=== PATIENT | male | born 1955 | race Caucasian/White ===

== ENCOUNTER 2017-10-05 13:44 | Outpatient (REF) | payer MEDICAID, SELFPAY ==
[2017-10-05 19:14] LABS: COMMENT (LAB VIEW ONLY) 44.11 mg/dL; Microalb ug/mg Crea 3.2 ug/mg Cr
== END 2017-10-05 13:45 ==
LOC: NCHCN 13:44
PROVIDERS: PCP Internal Medicine; Visit Provider Physician Assistant Medical
DX: E11.9 Type 2 diabetes mellitus without complications (principal)
CPT/HCPCS: 82043; 82570

== ENCOUNTER 2018-02-19 15:04 | Outpatient (REF) | payer MEDICAID, SELFPAY ==
[2018-02-19 19:17] LABS: Anion Gap 6.6 mmol/L (3-11); BUN 21 mg/dL (7-18); CO2 32.4 mmol/L (21.0-32.0); CREATININE 1.22 mg/dL (0.70-1.30); Calcium 9.9 mg/dL (8.5-10.1); Chloride 97 mmol/L (98-107); Glucose 119 mg/dL (70-100); Potassium 5.2 mmol/L (3.5-5.1); Sodium 136 mmol/L (136-145)
== END 2018-02-19 15:24 ==
LOC: NCHCN 15:04
PROVIDERS: PCP Internal Medicine; Visit Provider Physician Assistant Medical
DX: I10 Essential (primary) hypertension (principal); E11.9 Type 2 diabetes mellitus without complications
CPT/HCPCS: 80048

== ENCOUNTER 2019-08-19 18:40 | Outpatient (REF) | payer MEDICAID, SELFPAY ==
[2019-08-19 19:47] LABS: Abs Immature Grans 0.01 k/cumm (0.0-0.09); Absolute Basophil Count 0.03 k/cumm (0.0-0.2); Absolute Eosinophil Count 0.23 k/cumm (0.0-0.7); Absolute Lymphocyte Count 1.46 k/cumm (1.2-3.4); Absolute Monocyte Count 0.58 k/cumm (0.11-0.7); Absolute Neutrophil Count 4.81 k/cumm (1.2-6.7); Basophils % 0.4; Eosinophils % 3.2; HGB 14.4 g/dL (13.5-17.5); Immature Grans % 0.1 %; Lymphocytes % 20.5; Mean Corp. HGB Concentration 32.7 g/dL (32.0-36.0); Mean Corpuscular Hemoglobin 29.3 pg (27.0-33.0); Mean Corpuscular Volume 89.4 fL (80-95); Mean Platelet Volume 10.1 fL (8.0-11.0); Monocytes % 8.1; Neutrophils % 67.7; Platelet Count 301 x1000/uL (130-400); RBC 4.92 m/cumm (4.50-6.00); RBC Distribution Width 13.7 % (11.8-14.1); White Blood Cell Count 7.12 k/cumm (4.4-10.8)
[2019-08-19 20:20] LABS: Hemoglobin A1C 6.9 % (3.8-5.6)
[2019-08-19 20:21] LABS: ALT 22 U/L (16-63); AST 14 U/L (15-37); Albumin 4.1 g/dL (3.4-5.0); Alkaline Phosphatase 58 U/L (46-116); Anion Gap 5.6 mmol/L (3-11); BUN 22 mg/dL (7-18); Bilirubin, Total 0.3 mg/dL (0.2-1.0); CO2 32.4 mmol/L (21.0-32.0); CREATININE 1.27 mg/dL (0.70-1.30); Calcium 9.5 mg/dL (8.5-10.1); Calculated LDL 85 mg/dL (<100); Chloride 98 mmol/L (98-107); Cholesterol 148 mg/dL (<200); Estimated GFR 57.28 (mL/min/1.73m2); Glucose 152 mg/dL (74-106); HDL Cholesterol 41 mg/dL (40-60); Potassium 5.3 mmol/L (3.5-5.1); Sodium 136 mmol/L (136-145); Total Protein 7.6 g/dL (6.4-8.2); Triglyceride 114 mg/dL (<150)
== END 2019-08-19 19:00 ==
LOC: NCHCN 18:40
PROVIDERS: PCP Internal Medicine; Visit Provider Physician Assistant
DX: E11.9 Type 2 diabetes mellitus without complications (principal); I10 Essential (primary) hypertension; E78.5 Hyperlipidemia, unspecified; I25.10 Atherosclerotic heart disease of native coronary artery without angina pectoris; J44.9 Chronic obstructive pulmonary disease, unspecified
CPT/HCPCS: 80053; 80061; 83036; 85025

== ENCOUNTER 2019-08-28 13:31 | Outpatient (REF) | payer MEDICAID, SELFPAY ==
[2019-08-28 19:51] LABS: Microalb ug/mg Crea 5.3 ug/mg Cr
== END 2019-08-28 13:51 ==
LOC: NCHCN 13:31
PROVIDERS: PCP Internal Medicine; Visit Provider Physician Assistant
DX: E11.9 Type 2 diabetes mellitus without complications (principal)
CPT/HCPCS: 82043; 82570

== ENCOUNTER 2020-07-17 14:16 | Outpatient (REF) | payer MEDICAID, SELFPAY ==
[2020-07-17 18:47] LABS: Anion Gap 8.2 mmol/L (3-11); BUN 23 mg/dL (7-18); CO2 29.8 mmol/L (21.0-32.0); CREATININE 1.2 mg/dL (0.70-1.30); Calcium 9.6 mg/dL (8.5-10.1); Chloride 98 mmol/L (98-107); Glucose 115 mg/dL (74-106); Sodium 136 mmol/L (136-145)
== END 2020-07-17 14:17 | disposition home or self-care (01) ==
LOC: NCHCN 14:16
PROVIDERS: PCP Internal Medicine; Visit Provider Physician Assistant
DX: E11.9 Type 2 diabetes mellitus without complications (principal); I10 Essential (primary) hypertension
CPT/HCPCS: 80048

== ENCOUNTER 2020-10-16 16:23 | Outpatient (REF) | payer MEDICAID, SELFPAY ==
[2020-10-16 19:26] LABS: COMMENT (LAB VIEW ONLY) 43.35 mg/dL; Microalb ug/mg Crea 4.4 ug/mg Cr
== END 2020-10-16 16:24 | disposition home or self-care (01) ==
LOC: NCHCN 16:23
PROVIDERS: PCP Internal Medicine; Visit Provider Physician Assistant
DX: E11.9 Type 2 diabetes mellitus without complications (principal)
CPT/HCPCS: 82043; 82570

== ENCOUNTER 2021-07-15 14:27 | Outpatient (REF) | payer MEDICARE, MEDICAID, SELFPAY ==
[2021-07-15 18:58] LABS: Anion Gap 7.3 mmol/L (3-11); BUN 22 mg/dL (7-18); CO2 31.7 mmol/L (21.0-32.0); CREATININE 1.2 mg/dL (0.70-1.30); Calcium 9.4 mg/dL (8.5-10.1); Chloride 97 mmol/L (98-107); Glucose 138 mg/dL (74-106); Potassium 4.7 mmol/L (3.5-5.1); Sodium 136 mmol/L (136-145)
== END 2021-07-15 14:28 | disposition home or self-care (01) ==
LOC: LBN 14:27
PROVIDERS: PCP Internal Medicine; Visit Provider Physician Assistant
DX: I10 Essential (primary) hypertension (principal)
CPT/HCPCS: 80048

== ENCOUNTER 2022-07-12 18:08 | Outpatient (REF) | payer MEDICARE, MEDICAID, SELFPAY ==
[2022-07-12 19:53] LABS: ALT 24 U/L (16-63); AST 18 U/L (15-37); Albumin 3.7 g/dL (3.4-5.0); Alkaline Phosphatase 104 U/L (46-116); Anion Gap 6.6 mmol/L (3-11); BUN 17 mg/dL (7-18); Bilirubin, Total 0.4 mg/dL (0.2-1.0); CO2 31.4 mmol/L (21.0-32.0); CREATININE 1.1 mg/dL (0.70-1.30); Calcium 8.8 mg/dL (8.5-10.1); Chloride 99 mmol/L (98-107); Estimated GFR 74.04 (mL/min/1.73m2); Glucose 137 mg/dL (74-106); LDL CHOLESTEROL 58 mg/dL (<100); Potassium 4.7 mmol/L (3.5-5.1); Sodium 137 mmol/L (136-145); Total Protein 7.9 g/dL (6.4-8.2)
[2022-07-14 09:14] LABS: PSA, Screening 0.5 ng/mL (<=4.5)
== END 2022-07-12 18:09 | disposition home or self-care (01) ==
LOC: NCHCN 18:08
PROVIDERS: PCP Internal Medicine; Visit Provider Physician Assistant
DX: I10 Essential (primary) hypertension (principal); E11.9 Type 2 diabetes mellitus without complications; R35.1 Nocturia; Z12.5 Encounter for screening for malignant neoplasm of prostate
CPT/HCPCS: 80053; 83721; 84153

== ENCOUNTER → 2023-03-28 12:58 | Outpatient (BNVA) | payer MEDICARE, MEDICAID, SELFPAY | PROVIDERS: PCP Physician Assistant; Referring Provider Physician Assistant; Visit Provider Physician Assistant Surgical | DX: J44.9 Chronic obstructive pulmonary disease, unspecified (principal); J96.91 Respiratory failure, unspecified with hypoxia; F17.200 Nicotine dependence, unspecified, uncomplicated | CPT/HCPCS: 99205 ==

== ENCOUNTER → 2023-05-29 15:08 | Outpatient (BNVA) | payer MEDICARE, MEDICAID, SELFPAY | PROVIDERS: PCP Physician Assistant; Referring Provider Physician Assistant; Visit Provider Student in an Organized Health Care Education/Training Program | DX: J44.9 Chronic obstructive pulmonary disease, unspecified (principal); J96.91 Respiratory failure, unspecified with hypoxia; Z87.891 Personal history of nicotine dependence | CPT/HCPCS: 94640; 99214 ==

== ENCOUNTER 2023-08-09 17:54 | Outpatient (REF) | payer MEDICARE, SELFPAY ==
[2023-08-09 20:23] LABS: ALT 30 U/L (16-63); AST 18 U/L (15-37); Albumin 4.2 g/dL (3.4-5.0); Alkaline Phosphatase 101 U/L (46-116); Anion Gap 4.9 mmol/L (3-11); BUN 21 mg/dL (7-18); Bilirubin, Total 0.4 mg/dL (0.2-1.0); CO2 34.1 mmol/L (21.0-32.0); CREATININE 1.1 mg/dL (0.70-1.30); Calcium 9.4 mg/dL (8.5-10.1); Chloride 99 mmol/L (98-107); Estimated GFR 73.58 (mL/min/1.73m2); Glucose 136 mg/dL (74-106); Potassium 4.8 mmol/L (3.5-5.1); Sodium 138 mmol/L (136-145); Total Protein 8.1 g/dL (6.4-8.2)
== END 2023-08-09 17:55 | disposition home or self-care (01) ==
LOC: NCHCN 17:54
PROVIDERS: PCP Physician Assistant; Visit Provider Physician Assistant
DX: E11.9 Type 2 diabetes mellitus without complications (principal)
CPT/HCPCS: 80053

== ENCOUNTER → 2023-09-28 14:22 | Outpatient (BNVA) | payer MEDICARE, SELFPAY | PROVIDERS: PCP Physician Assistant; Referring Provider Physician Assistant; Visit Provider Physician Assistant Surgical | DX: J44.9 Chronic obstructive pulmonary disease, unspecified (principal); J96.91 Respiratory failure, unspecified with hypoxia; Z87.891 Personal history of nicotine dependence | CPT/HCPCS: 99214 ==

== ENCOUNTER → 2023-11-20 12:55 | Outpatient (BNVA) | payer MEDICARE, SELFPAY | PROVIDERS: PCP Physician Assistant; Referring Provider Physician Assistant; Visit Provider Nurse Practitioner Gerontology | DX: N40.1 Benign prostatic hyperplasia with lower urinary tract symptoms (principal); R35.1 Nocturia | CPT/HCPCS: 51798; 81003; 99215 ==

== ENCOUNTER → 2024-02-21 13:58 | Outpatient (BNVA) | payer MEDICARE, SELFPAY | PROVIDERS: PCP Physician Assistant; Referring Provider Physician Assistant; Visit Provider Nurse Practitioner Gerontology | DX: N40.1 Benign prostatic hyperplasia with lower urinary tract symptoms (principal); R35.1 Nocturia | CPT/HCPCS: 51798; 99213 ==

== ENCOUNTER → 2024-03-26 12:39 | Outpatient (BNVA) | payer MEDICARE, SELFPAY | PROVIDERS: PCP Physician Assistant; Referring Provider Physician Assistant; Visit Provider Physician Assistant Surgical | DX: J44.9 Chronic obstructive pulmonary disease, unspecified (principal); J96.91 Respiratory failure, unspecified with hypoxia; F17.290 Nicotine dependence, other tobacco product, uncomplicated | CPT/HCPCS: 99214 ==

== ENCOUNTER → 2024-08-21 14:19 | Outpatient (BNVA) | payer MEDICARE, SELFPAY | PROVIDERS: PCP Physician Assistant; Referring Provider Physician Assistant; Visit Provider Nurse Practitioner Gerontology | DX: R35.1 Nocturia (principal); R39.9 Unspecified symptoms and signs involving the genitourinary system | CPT/HCPCS: 99213; 51798 ==

== ENCOUNTER 2024-09-18 18:54 | Outpatient (REF) | payer MEDICARE, SELFPAY ==
[2024-09-18 22:10] LABS: Abs Immature Grans 0.02 10^3/uL (0.0-0.06); HCT 34.5 % (40.0-50.0); HGB 11.0 g/dL (13.5-17.5); Immature Grans % 0.4 %; MCH 28.5 pg (27.0-33.0); MCHC 31.9 % (32.0-36.0); MCV 89 fL (80-95); MPV 10.9 fL (8.0-11.0); Platelet Count 204 10^3/uL (130-400); RBC 3.86 10^6/uL (4.36-5.78); RDW 14.7 % (11.8-14.1); RDW-SD 47.5 fL; WBC 5.35 10^3/uL (4.4-10.8)
[2024-09-18 22:40] LABS: ALT 23 U/L (16-63); AST 24 U/L (15-37); Albumin 3.7 g/dL (3.4-5.0); Anion Gap 5.9 mmol/L (3-11); BUN 22 mg/dL (7-18); CO2 33.1 mmol/L (21.0-32.0); Calcium 9.4 mg/dL (8.5-10.1); Chloride 97 mmol/L (98-107); Estimated GFR 96.40 (mL/min/1.73m2); Glucose 89 mg/dL (74-106); LDL CHOLESTEROL 45 mg/dL (<100); Magnesium 1.6 mg/dL (1.8-2.4); Potassium 4.6 mmol/L (3.5-5.1); Sodium 136 mmol/L (136-145); TSH (W/Ref FT4) 4.41 uIU/mL (0.36-3.74); Total Protein 7.5 g/dL (6.4-8.2)
[2024-09-18 23:59] LABS: Alkaline Phosphatase 211 U/L (46-116); Bilirubin, Total 0.5 mg/dL (0.2-1.0)
== END 2024-09-18 18:55 | disposition home or self-care (01) ==
LOC: NCHCN 18:54
PROVIDERS: PCP Physician Assistant; Visit Provider Physician Assistant
DX: E78.5 Hyperlipidemia, unspecified (principal); I49.9 Cardiac arrhythmia, unspecified; I10 Essential (primary) hypertension
CPT/HCPCS: 80053; 83721; 83735; 84439; 84443; 85025

== ENCOUNTER → 2024-10-08 13:50 | Outpatient (BNVA) | payer MEDICARE, SELFPAY | PROVIDERS: PCP Physician Assistant; Referring Provider Physician Assistant; Visit Provider Physician Assistant Surgical | DX: J44.9 Chronic obstructive pulmonary disease, unspecified (principal); J96.91 Respiratory failure, unspecified with hypoxia; Z87.891 Personal history of nicotine dependence | CPT/HCPCS: 99214 ==

== ENCOUNTER → 2024-11-21 14:05 | Outpatient (BNVA) | payer MEDICARE, SELFPAY | PROVIDERS: PCP Physician Assistant; Referring Provider Physician Assistant; Visit Provider Internal Medicine Pulmonary Disease | DX: J44.9 Chronic obstructive pulmonary disease, unspecified (principal); J96.91 Respiratory failure, unspecified with hypoxia; J90 Pleural effusion, not elsewhere classified; R00.1 Bradycardia, unspecified; Z87.891 Personal history of nicotine dependence | CPT/HCPCS: 99214; 76604 ==

== ENCOUNTER 2024-11-21 15:28 | Outpatient (CLI) | payer MEDICARE, SELFPAY ==
--- NOTE | 2024-11-21 15:30 | RT.EKG_ITS ---
APPROVED REPORT Exam: Resting ECG Reason for Exam: bradycardia, dyspnea Patient Location: O HR:65 bpm ECG Measurements Heart Rate 65 AXIS PA [id number] P 48 QRSd 107 QRS 46 QT 448 T 24 QTc 466 Conclusion Sinus rhythm...normal P axis, V-rate 50- 99 Low voltage Possible anterior infarct, old...Q >40mS, abnormal ST-T, V2-V5
== END 2024-11-21 15:29 | disposition home or self-care (01) ==
PROVIDERS: PCP Physician Assistant; Visit Provider Internal Medicine Pulmonary Disease
DX: R00.1 Bradycardia, unspecified (principal)
CPT/HCPCS: 93005; 93010

== ENCOUNTER 2024-11-21 16:06 | Emergency (ER) | payer MEDICARE, SELFPAY ==
[2024-11-21 16:10] VITALS: BP 132/67; PULSE 67; RESP 18; TEMP 36.6; O2SAT 93
[2024-11-21 16:14] VITALS: BP 132/67; PULSE 67; RESP 18; TEMP 36.6; O2SAT 93
--- NOTE | 2024-11-21 16:54 | W.ED.GENAD ---
Discharge Plan Disposition Patient Disposition: Against Medical Advice Discharge Details Clinical Impression: Second degree AV block, Mobitz type II, Hypomagnesemia, Pleural effusion on right, Elevated brain natriuretic peptide (BNP) level Primary Care Provider: Karlene Garcia ED Provider: rBett Snow Home Meds and New Rx's Prescriptions: No Action magnesium glycinate 100 mg magnesium capsule 200 mg PO BID alfuzosin 10 mg tablet extended release 24 hr 10 mg PO DAILY Qty: 90 3RF Rx Instructions: administer after the same meal each day - replaces tamsulosin atorvastatin 40 mg tablet 40 mg PO QHS venlafaxine 75 mg capsule,extended release 24hr 75 mg PO DAILY zinc acetate 50 mg (zinc) capsule 50 mg PO DAILY lisinopril 20 mg tablet 20 mg PO DAILY aspirin [Adult Low Dose Aspirin] 81 mg tablet,delayed release (DR/EC) 81 mg PO DAILY metformin 1,000 mg tablet 1,000 mg PO BID chromium picolinate 200 mcg tablet 200 mcg PO DAILY albuterol sulfate [Ventolin HFA] 90 mcg/actuation HFA aerosol inhaler 2 puff inhalation .Q4-6H PRN cinnamon bark [Cinnamon] 500 mg capsule 500 mg PO DAILY cholecalciferol (vitamin D3) 50 mcg (2,000 unit) capsule 50 mcg PO DAILY doxycycline hyclate 100 mg capsule 100 mg PO BID Breztri Aerosphere 160-9-4.8 mcg/actuation HFA aerosol inhaler 2 inh inhalation BID Qty: 10.7 12RF ipratropium-albuterol 0.5 mg-3 mg(2.5 mg base)/3 mL solution for nebulization See Rx Instructions .ROUTE .COMPLEX Qty: 540 12RF Dose Instruction: INHALE 3MLS VIA NEBULIZER EVERY 4 HOURS NEEDED FOR SHORTNESS OF BREATH Rx Instructions: INHALE 3MLS VIA NEBULIZER EVERY 4 HOURS NEEDED FOR SHORTNESS OF BREATH Discharge Instructions Instructions: Leaving Against Medical Advice Additional Instructions: You are leaving AGAINST MEDICAL ADVICE. You may have lifestyle modifying or life threatening disease that we will go undiagnosed and untreated. Please follow-up with your primary care physician as soon as possible. Please follow-up with cardiology as soon as possible. Please follow-up with your database marketing analyst as soon as possible. Return to the emergency department at any time should you wish to pursue additional diagnostics and treatment as recommended. Referrals: CARDIOLOGY,[facility] [place] [OTHER, Cardiology] Ramírez Kincaid MD [ [facility]YS[facility]IAN, Pulmonology] Karlene Garcia [Primary Care Provider, Medicine] HPI General Mode of arrival: ambulatory. Date/Time Provider Initiated Documentation: 11/21/24 16:17. Limitations to Documentation: no limitations. Information obtained by: patient and RN/MD. HPI Narrative: HISTORY OF PRESENT ILLNESS This is a 69-year-old male with a history of COPD, right pleural effusion, bradycardia, and coronary artery disease presenting with concern for new-onset second-degree heart block with Mobitz 2. He was sent from the pulmonary clinic. He reports no complaints at this time but has had shortness of breath recently. Blood pressure is stable. He is accompanied by his girlfriend. The patient reports feeling well overall, with no current issues or pain. He has been experiencing persistent shortness of breath. He is always on oxygen. He has not had any recent fevers or pain. He has never had fluid accumulation in his lungs before. The patient has a history of a heart attack several years ago, which he was unaware of at the time. A stress test conducted years later revealed minimal damage to the lower part of his heart. He did not undergo stent placement or bypass. The patient has been dealing with leg swelling for an extended period, which improves when he wears socks. He denies calf pain. No change in swelling. Related Data Home Medications ?Medication ?Instructions ?Recorded ?Confirmed albuterol sulfate 90 mcg/actuation 2 puff inhalation .Q4-6H PRN 01/23/23 11/21/24 aerosol inhaler (Ventolin HFA) aspirin 81 mg tablet,delayed 81 mg PO DAILY 01/23/23 11/21/24 release (Adult Low Dose Aspirin) atorvastatin 40 mg tablet 40 mg PO QHS 01/23/23 11/21/24 cholecalciferol (vitamin D3) 50 50 mcg PO DAILY 01/23/23 11/21/24 mcg (2,000 unit) capsule chromium picolinate 200 mcg tablet 200 mcg PO DAILY 01/23/23 11/21/24 cinnamon bark 500 mg capsule 500 mg PO DAILY 01/23/23 11/21/24 (Cinnamon) lisinopril 20 mg tablet 20 mg PO DAILY 01/23/23 11/21/24 metformin 1,000 mg tablet 1,000 mg PO BID 01/23/23 11/21/24 venlafaxine 75 mg capsule,extended 75 mg PO DAILY 01/23/23 11/21/24 release 24 hr zinc acetate 50 mg (zinc) capsule 50 mg PO DAILY 01/23/23 11/21/24 doxycycline hyclate 100 mg capsule 100 mg PO BID 05/10/23 11/21/24 budesonide 160 mcg-glycopyr 9 2 inh inhalation BID #10.7 grams 11/14/23 11/21/24 mcg-formot 4.8 mcg/actuation HFA inhaler (Breztri Aerosphere) ipratropium 0.5 mg-albuterol 3 mg See Rx Instructions .Route 06/18/24 11/21/24 (2.5 mg base)/3 mL nebulization .COMPLEX #540 mL soln alfuzosin 10 mg tablet,extended 10 mg PO DAILY #90 tabs 08/21/24 11/21/24 release 24 hr magnesium glycinate 200 mg PO BID 11/21/24 11/21/24 Previous Rx's ?Medication ?Instructions ?Recorded budesonide 160 mcg-glycopyr 9 2 inh inhalation BID #10.7 grams 11/14/23 mcg-formot 4.8 mcg/actuation HFA inhaler (Breztri Aerosphere) ipratropium 0.5 mg-albuterol 3 mg See Rx Instructions .Route 06/18/24 (2.5 mg base)/3 mL nebulization .COMPLEX #540 mL soln alfuzosin 10 mg tablet,extended 10 mg PO DAILY #90 tabs 08/21/24 release 24 hr Allergies Allergy/AdvReac Type Severity Reaction Status Date / Time Sulfa Allergy Intermediate shaking Uncoded 11/21/24 16:13 and sweating General Stated Complaint: GenMedical STONEY: 3 Review of Systems All systems reviewed & are unremarkable except as noted in HPI and below Exam Const General: cooperative and no acute distress Nutritional Appearance: well nourished Orientation: alert and awake Other: On nasal cannula oxygen HENMT Mouth: moist mucous membranes Eyes Conjunctivae: normal conjunctivae Sclera: normal sclerae Neck Neck: trachea midline and supple Resp Effort & Inspection: normal respiratory effort (On nasal cannula oxygen) and no respiratory distress Auscultation: no rales, no rhonchi, no wheezes and other (Diminished breath sounds right base) Cardio Rate: regular rate and not tachycardic Rhythm: regular rhythm GI Palpation: soft, not firm, no guarding, no masses, not rigid and nontender Skin General skin exam: no rashes or lesions noted Neuro General: patient alert, patient awake, patient oriented x3 and tone normal Extrem General: no calf tenderness and edema Laterality: bilateral (Trace) Course Vital Signs Vital signs: Vital Signs Temperature 36.6 C 11/21/24 16:10 Pulse 67 11/21/24 16:10 Respiratory Rate 18 11/21/24 16:10 Blood Pressure 132/67 11/21/24 16:10 Pulse Oximetry 93 11/21/24 16:10 Temperature 36.6 C 11/21/24 16:14 Pulse 67 11/21/24 16:14 Respiratory Rate 18 11/21/24 16:14 Blood Pressure 132/67 11/21/24 16:14 Pulse Oximetry 93 11/21/24 16:14 Oxygen Delivery Method Nasal Cannula 11/21/24 16:14 Oxygen Flow Rate 3 11/21/24 16:14 Medical Decision Making ASSESSMENT AND PLAN Initial Assessment: 69-year-old male with multiple medical problems including COPD, right pleural effusion, bradycardia, and coronary artery disease sent from pulmonary clinic with concern for new onset second-degree heart block with Mobitz II. Denies complaints but has had recent shortness of breath. Blood pressure stable. Differential Diagnosis: - Second-degree heart block with Mobitz II - Electrolyte imbalance: Blood work to check for abnormalities. - Cardiac damage ED Course: - EKG from clinic today at 322 was reviewed by me: Second-degree AV cheryl block Mobitz type II. Compared to recent prior EKG from 09/18/2024 this is a new block. - Labs to assess for electrolyte abnormalities, thyroid dysfunction, and ACS. - Labs reviewed - Patient received magnesium 1 g IV Clinical Impression: - Second-degree heart block with Mobitz II - Right pleural effusion - Hypomagnesemia Disposition: - Plan for admission. Plan discussed with patient and he wishes to leave AGAINST MEDICAL ADVICE. Patient has decision-making capacity. Reviewed risks of leaving AGAINST MEDICAL ADVICE. I again discussed plan with the patient and he again refuses. Plan was also discussed with his significant other who I engaged and she also tried to convince patient. He continues to wish to leave. All results were discussed with the patient. He was encouraged to follow-up with his primary care physician, database marketing analyst and cardiology as soon as possible. He was encouraged to return at any time should he wish to pursue diagnostic workup and treatment as recommended. Patient verbalized understanding. Patient Education: Discussed potential need for pacemaker if arrhythmia due to heart damage. Explained risks of current heart rhythm. Informed about blood work and potential hospitalization. This document was written with the assistance of [facility]. The patient consented to its use. Lab Data Labs: Laboratory Tests Range/Units 11/21/24 11/21/24 16:55 17:50 WBC (4.4-10.8) 10^3/uL 4.99 RBC (4.36-5.78) 10^6/uL 4.08 L Hgb (13.5-17.5) g/dL 11.6 L Hct (40.0-50.0) % 35.6 L MCV (80-95) fL 87 MCH (27.0-33.0) pg 28.4 MCHC (32.0-36.0) % 32.6 RDW (11.8-14.1) % 15.2 H Plt Count (130-400) 10^3/uL 209 MPV (8.0-11.0) fL 9.9 Immature Gran % % 0.2 Neutrophils % % 70.6 Lymphocytes % % 17.4 Monocytes % % 7.6 Eosinophils % % 3.2 Basophils % % 1.0 Nucleated RBC % (0.0-0.3) % 0.0 Absolute Neutrophils (1.2-6.7) 10^3/uL 3.52 Absolute Lymphocytes (1.2-3.4) 10^3/uL 0.87 L Absolute Monocytes (0.1-0.8) 10^3/uL 0.38 Absolute Eosinophils (0.0-0.7) 10^3/uL 0.16 Absolute Basophils (0.0-0.2) 10^3/uL 0.05 Sodium (136-145) mmol/L 136 Potassium (3.5-5.1) mmol/L 4.3 Chloride (98-107) mmol/L 97 L Carbon Dioxide (21.0-32.0) mmol/L 33.9 H Anion Gap (3-11) mmol/L 5.1 BUN (7-18) mg/dL 15 Creatinine (0.70-1.30) mg/dL 0.9 Est GFR (CKD-EPI 2020) (mL/min/1.73m2) 93.03 Glucose (74-106) mg/dL 101 Calcium (8.5-10.1) mg/dL 9.3 Magnesium (1.8-2.4) mg/dL 1.6 L Total Bilirubin (0.2-1.0) mg/dL 0.7 AST (15-37) U/L 19 ALT (16-63) U/L 20 Alkaline Phosphatase (46-116) U/L 248 H Troponin I (<or=76) ng/L 11 12 NT-Pro-B Natriuret Pep (<300) pg/mL 2813 H Total Protein (6.4-8.2) g/dL 8.0 Albumin (3.4-5.0) g/dL 4.1 TSH (0.36-3.74) uIU/mL 13.38 H Free T4 (0.76-1.46) ng/dL 0.81 PFSH All Active Problems (Updated 11/21/24 @ 19:40 by Brett Snow MD) Elevated brain natriuretic peptide (BNP) level (Acute) Pleural effusion on right (Acute) Hypomagnesemia (Acute) Second degree AV block, Mobitz type II (Acute) Bradycardia (Acute) Pleural effusion, right (Acute) Lower urinary tract symptoms (LUTS) (Acute) Personal history of nicotine dependence (Acute) Hypoxic respiratory failure (Acute) Hypertensive disorder (Chronic) IBS (irritable bowel syndrome) (Chronic) Retinopathy (Acute) Ear pain, right (Acute) Continuous chronic alcoholism (Acute) Carpal tunnel syndrome (Acute) Anxiety state (Acute) Abscess of skin and subcutaneous tissue (Acute) Impacted cerumen, right ear (Acute) Peripheral vascular disease (Chronic) Tremor (Acute) Nocturia (Acute) Acute ST elevation myocardial infarction (Acute) Obesity (Chronic) Atherosclerosis (Acute) active of coronary artery without angina pectoris Hidradenitis (Acute) Anxiety (Chronic) COPD (chronic obstructive pulmonary disease) (Chronic) Alcohol abuse (Chronic) Type 2 diabetes mellitus (Acute) Essential (primary) hypertension (Acute) Hyperlipidemia (Acute) Medical History Hypoxemia Lung field abnormal Family History Father Heart disease heart failure Diabetes Mother Hypertension Heart disease heart failure Diabetes Social History Smoking/Tobacco Use Status: Former Tobacco Use Quit Date: 02/03/17 Pack-years: 168 Tobacco: How many years used: 42 Smoking risk assessment performed?: Yes Alcohol Intake: current Alcohol Intake frequency: 3 or more drinks per day Drug use: Never Substance use type: does not use Additional Social history: former tobacco smoker: Pt now vapes PAWSS Have you Been Recently Intoxicated or Drunk Within the Last 30 days?: No Have you Ever Experienced Previous Episodes of Alcohol Withdrawal?: No Have you ever Experienced Withdrawal Seizures?: No Have you ever Experienced Delirium Tremens(DT)s?: No Have you ever undergone Alcohol Rehabilitation Treatment (i.e, inpt ot outpatient treatment programs)?: No Have you ever Experienced Blackouts?: No Have you ever Combined Alcohol with other Downers within the last 90 days?: No Have you ever Combined Alcohol with any other Substance of Abuse during the last 90 days?: No Positive Blood Alcohol level on Presentation? [PCS.BAL]: No Evidence of Increased Autonomic Activity (i.e. HR>120, tremor, sweating, agitation, nausea)?: No Result: 0
[2024-11-21 17:00] LABS: Abs Immature Grans 0.01 10^3/uL (0.0-0.06); HCT 35.6 % (40.0-50.0); HGB 11.6 g/dL (13.5-17.5); Immature Grans % 0.2 %; MCH 28.4 pg (27.0-33.0); MCHC 32.6 % (32.0-36.0); MCV 87 fL (80-95); MPV 9.9 fL (8.0-11.0); Platelet Count 209 10^3/uL (130-400); RBC 4.08 10^6/uL (4.36-5.78); RDW 15.2 % (11.8-14.1); RDW-SD 48.8 fL; WBC 4.99 10^3/uL (4.4-10.8)
[2024-11-21 17:24] LABS: ALT 20 U/L (16-63); AST 19 U/L (15-37); Albumin 4.1 g/dL (3.4-5.0); Alkaline Phosphatase 248 U/L (46-116); Anion Gap 5.1 mmol/L (3-11); BUN 15 mg/dL (7-18); Bilirubin, Total 0.7 mg/dL (0.2-1.0); CO2 33.9 mmol/L (21.0-32.0); Calcium 9.3 mg/dL (8.5-10.1); Chloride 97 mmol/L (98-107); Estimated GFR 93.03 (mL/min/1.73m2); Glucose 101 mg/dL (74-106); Magnesium 1.6 mg/dL (1.8-2.4); NT-proBNP 2813 pg/mL (<300); Potassium 4.3 mmol/L (3.5-5.1); Sodium 136 mmol/L (136-145); TSH (W/Ref FT4) 13.38 uIU/mL (0.36-3.74); Total Protein 8.0 g/dL (6.4-8.2); Troponin I 11 ng/L (<or=76)
[2024-11-21] MEDS: MAGNESIUM SULFATE 1 GM/100 ML BAG IV_INF (18:04)
[2024-11-21 18:14] LABS: Troponin I 12 ng/L (<or=76)
== END 2024-11-21 19:40 | disposition left against medical advice (07) ==
PROVIDERS: Emergency Provider Student in an Organized Health Care Education/Training Program; PCP Physician Assistant
DX: I44.1 Atrioventricular block, second degree (principal); J90 Pleural effusion, not elsewhere classified; R79.89 Other specified abnormal findings of blood chemistry; E83.42 Hypomagnesemia; Z53.20 Procedure and treatment not carried out because of patient's decision for unspecified reasons
CPT/HCPCS: 36415; 76604; 80053; 96365; 99214; 99284; 83735; 83880; 84439; 84443; 84484; 85025; 93005; J3475

== ENCOUNTER 2024-11-26 09:57 | Day surgery (SDC) | payer MEDICARE, SELFPAY ==
--- NOTE | 2024-11-26 | DI.RAD_ITS ---
Exam(s) XR PORTABLE CHEST AP EXAM: XR PORTABLE CHEST AP CLINICAL HISTORY: post thoracentesis - right TECHNIQUE: 2D digital imaging was performed. COMPARISON: CT CT CHEST LOW DOSE CA SCREENING from 10/16/2024 FINDINGS: LUNGS: There is a small right pleural effusion. There are mild adjacent densities, likely atelectasis. The exam is somewhat limited in this area by overlying densities. No pneumothorax is visible. HEART: Mildly enlarged. AORTA: Normal diameter. BONES: Unremarkable for age. Soft tissues: Unremarkable. IMPRESSION: Small right pleural effusion. No visible pneumothorax. DATA REPOSITORY: RADIATION DOSE DELIVERED:
[2024-11-26 10:25] VITALS: BP 124/66; PULSE 64; RESP 20; TEMP 36.5; O2SAT 97
--- NOTE | 2024-11-26 11:55 | PAPNONF_PTH ---
PATIENT: Rafael Adkins LOC: [facility] U#:[id number] AGE/SX: 69/M ROOM: RE11/26/[address]: Ramírez Kincaid : 1955 BED: DIS: 11/26/2024 SPEC #: [id number] RECD: 11/26/24 12:56 STATUS: KAREN RESujit #: [id number] DEBBIE: 11/26/24 11:[address]: Ramírez Kincaid [facility]PT: [facility] Cytology RECD BY: Makenna Morin ENTERED: 11/26/24 12:56 SP TYPE: JENNIE HERNANDEZ DR: Karlene Garcia Tissues: 1 - BODY FLUID CYTO(NOT S/U/N/EM)[facility] Procedures: BODY FLUID CYTO(NOT SPU/UR/NIP/ENDOM)[facility] Comments: [id number] (TV = 500 ml, SENT FRESH) (REFRIGERATED)
[2024-11-26 12:04] VITALS: BP 91/58; PULSE 77; RESP 18; TEMP 36.3; O2SAT 96
--- NOTE | 2024-11-26 12:08 | W.PM.OP ---
Operative Note Operative Note PRE-OP DIAGNOSIS: Pleural effusion - right POST-OP DIAGNOSIS: same PROCEDURE: Right thoracentesis SURGEON: Ramírez Kincaid ANESTHESIA TYPE: Local By Surgeon Refer to Anesthesia Record ESTIMATED BLOOD LOSS: 2 Procedure Description: The procedure risks, benefits, and alternatives were discussed with Mr. Adkins, who understood and informed consent was obtained. Laboratory studies and radiographs were reviewed. A time-out was performed.? Bedside ultrasound was used to identify an appropriate site for thoracentesis.? The site was marked on the right posterior chest wall.? Sterile technique was used throughout the procedure.? The site was cleaned and draped in a sterile fashion.? Using a 10 cc syringe and 22 Ga needle, the skin and tract to the pleural cavity were anesthetized with 10 mL of 1% lidocaine.? Pleural fluid was obtained in the 10 cc syringe without difficulty. ?A small 2-3 mm skin incision was made at the marked site.? An 8 Fr catheter over a needle was advanced until positive fluid return.? The catheter was then advanced into the pleural space and the needle was removed.? Pleural fluid was drained without difficulty.? Post-procedure bedside ultrasound demonstrated good lung sliding.? There was minimal residual fluid remaining. 550 mL of clear, light yellow pleural fluid were removed. Samples were sent for chemistries, cell count, bacterial/fungal/afb cultures, and cytopathology. Follow-up: A chest radiograph was ordered and is pending Follow-up on pleural fluid analysis Date of Procedure: 11/26/24
[2024-11-26 14:01] LABS: Polynuclear Cells 5 %
[2024-11-26 21:37] LABS: Glucose, Fluid 103 mg/dL (See Note)
[2024-11-28 09:42] LABS: Protein,Total, BF 3.9 g/dL
[2024-11-28 11:31] LABS: Lactate Dehydrogenase (LD), BF 99 U/L
== END 2024-11-26 12:27 | disposition home or self-care (01) ==
PROVIDERS: PCP Physician Assistant; Visit Provider Internal Medicine Pulmonary Disease
PROC: (CPT 32554; principal; 2024-11-26 11:30)
DX: J90 Pleural effusion, not elsewhere classified (principal)
CPT/HCPCS: 32555; 76604; 00123; 87116; 87206; 71045; 81373; 83615; 84157; 87070; 87075; 87205; 88104; 89051

== ENCOUNTER 2024-12-04 14:34 | Outpatient (RCR) | payer MEDICARE, SELFPAY ==
--- NOTE | 2024-12-10 09:59 | W.HOLTRPT ---
Date of service: 12/10/24 Time of Service: 09:59 Holter Monitor Report Referring Provider:: Karlene Garcia Indications:: Palpitations Holter Monitor Note: This is a 48-hour Holter monitor. Predominant rhythm was sinus with a long first-degree AV block. Average heart rate was 61. Minimum was 36, maximum 91 There were very rare isolated atrial and ventricular ectopic beats Periods of Mobitz 1 second-degree AV block (Wenckebach) were noted. There was no atrial fibrillation, no high-grade AV block, no pauses greater than 3 seconds No symptoms were reported
== END 2025-01-03 23:59 | disposition home or self-care (01) ==
LOC: CARDOPNVT 14:34
PROVIDERS: PCP Physician Assistant; Visit Provider Internal Medicine Cardiovascular Disease
DX: R00.2 Palpitations (principal)
CPT/HCPCS: 93227; 93225; 93226

== ENCOUNTER 2024-12-24 12:52 | Outpatient (CLI) | payer MEDICARE, SELFPAY ==
--- NOTE | 2024-12-24 12:45 | RT.EKG_ITS ---
APPROVED REPORT Exam: Resting ECG Reason for Exam: SC Patient Location: O HR:66 bpm ECG Measurements Heart Rate 66 AXIS NH 344 P 0 QRSd 110 QRS 40 QT 424 T 27 QTc 445 Conclusion Sinus rhythm...normal P axis, V-rate 50- 99 Prolonged NH interval...NH >220, V-rate 50- 90 Low voltage, extremity leads...all extremity leads <0.5mV Mobitz 1 second-degree AV block Poor R wave progression
== END 2024-12-24 12:53 | disposition home or self-care (01) ==
LOC: DI.CARD 12:53
PROVIDERS: PCP Physician Assistant; Visit Provider Internal Medicine Cardiovascular Disease
DX: I21.3 ST elevation (STEMI) myocardial infarction of unspecified site (principal); R00.1 Bradycardia, unspecified; I70.90 Unspecified atherosclerosis
CPT/HCPCS: 93010

== ENCOUNTER → 2024-12-24 12:53 | Outpatient (BNVA) | payer MEDICARE, SELFPAY | PROVIDERS: PCP Physician Assistant; Referring Provider Physician Assistant; Visit Provider Internal Medicine Cardiovascular Disease | DX: I44.1 Atrioventricular block, second degree (principal); I10 Essential (primary) hypertension; I21.3 ST elevation (STEMI) myocardial infarction of unspecified site; I70.90 Unspecified atherosclerosis; R00.1 Bradycardia, unspecified | CPT/HCPCS: 99214; 93005 ==

== ENCOUNTER → 2025-01-02 14:20 | Outpatient (BNVA) | payer MEDICARE, SELFPAY | PROVIDERS: PCP Physician Assistant; Referring Provider Physician Assistant; Visit Provider Physician Assistant Surgical | DX: J44.9 Chronic obstructive pulmonary disease, unspecified (principal); J96.91 Respiratory failure, unspecified with hypoxia; Z87.891 Personal history of nicotine dependence; J90 Pleural effusion, not elsewhere classified; I50.30 Unspecified diastolic (congestive) heart failure | CPT/HCPCS: 99214; 76604 ==

== ENCOUNTER 2025-01-03 14:21 | Outpatient (REF) | payer MEDICARE, SELFPAY ==
[2025-01-03 20:30] LABS: TSH (W/Ref FT4) 4.19 uIU/mL (0.36-3.74)
== END 2025-01-03 14:22 | disposition home or self-care (01) ==
LOC: NCHCN 14:21
PROVIDERS: PCP Physician Assistant; Visit Provider Physician Assistant
DX: R94.6 Abnormal results of thyroid function studies (principal)
CPT/HCPCS: 84439; 84443

== ENCOUNTER → 2025-02-20 14:23 | Outpatient (BNVA) | payer MEDICARE, SELFPAY | PROVIDERS: PCP Physician Assistant; Referring Provider Physician Assistant; Visit Provider Nurse Practitioner Gerontology | DX: N40.1 Benign prostatic hyperplasia with lower urinary tract symptoms (principal); R35.1 Nocturia; R39.9 Unspecified symptoms and signs involving the genitourinary system | CPT/HCPCS: 99213; 51798 ==